=== PATIENT | female | born 1945 | race Caucasian/White ===

== ENCOUNTER → 2017-04-28 | Outpatient (CLI) | payer OTHER, MEDICAID ==
[~2017-04-28] MED LIST: REGADENOSON 0.4 MG/5 ML SYR IVP ONE
--- NOTE | 2017-04-28 14:57 | PDCARST ---
CAR Stress Test Results Type of Stress Test: Lexiscan stress test Indication: chest pain Description of Procedure: After informed consent was obtained, pt was established to ECG, blood pressure, HR and oximetry monitoring. STRESS EKG AND HEMODYNAMIC DATA. Resting heart rate: 74 BPM. Resting ECG: SR. Resting blood pressure: 110/74 mmHg. O2 saturation at rest: 96%. Peak heart rate: 79 BPM. Peak blood pressure: 118/70 mmHg. Arrhythmias: PVC couplet in recovery. Symptoms: The patient experienced no typical symptoms of angina during stress or recovery. Stress/Infusion ECG: No change in rhythm with no significant ST/T wave changes. Stress/infusion O2 saturation: 98% Impression: Uneventful Lexiscan infusion. Conclusion: Await nuclear images.
== END ==
LOC: FIMAGING 12:55
PROVIDERS: ATTEND Internal Medicine
DX: R06.02 Shortness of breath (principal); R07.9 Chest pain, unspecified; R60.0 Localized edema
CPT/HCPCS: 78452; 93017; A9500; J2785

== ENCOUNTER 2017-05-28 06:02 | Inpatient (IN) | payer OTHER, MEDICAID ==
--- NOTE | 2017-05-28 06:10 | CPEKG ---
Heart Rate: 74 RR Interval: 811 P-R Interval: 180 QRSD Interval: 100 QT Interval: 420 QTC Interval: 466 P [place]: 40 QRS [place]: -47 T Wave [place]: 85 EKG Severity - ABNORMAL ECG - EKG Impression: ATRIAL-PACED COMPLEXES EKG Impression: LAD, CONSIDER LAFB OR INFERIOR INFARCT EKG Impression: CONSIDER ANTERIOR INFARCT EKG Impression: NONSPECIFIC T ABNORMALITIES, LATERAL LEADS Electronically Signed By: Krunal Bates 31-May-2017 15:33:59
--- NOTE | 2017-05-28 06:21 | EDPHY ---
H & P Time Seen by Provider: 05/28/17 06:10 HPI/ROS: HPI CHIEF COMPLAINT: Generalized weakness, failure to thrive HISTORY OF PRESENT ILLNESS: This patient is 71-year-old female, she has a history of GERD, COPD on home oxygen 4 L, additionally lives at [facility], presents emergency room generalized weakness x3 days. EMS reports that she has been globally weak for 3 days with a failure to thrive picture not eating and drinking. Report no vomiting. The patient denies any chest pain. Patient is a poor historian and has no complaints upon arrival to the emergency room. Denies chest pain or abdominal pain. She does complain of bilateral lower extremity edema. Daughter has arriving to be more information she reports she has been weak for the past 3 days globally. And not been eating and drinking. She is concerned she may be dehydrated. She distally reports that the bilateral lower extremities worse than normal. And that she is complaining worsening shortness of breath. She was recently started on Lasix. Additionally patient has significant kyphosis and hyperflexed neck daughter reports this is normal for her she is supposed to wear a pad neck brace but does not do so. Daughter reports that she wears 3 L during the day of oxygen 5 L at night. Past Medical History: COPD on oxygen, GERD, anxiety, bipolar disorder, recent cardiac nuclear stress test with any of 42%. Past Surgical History: No recent surgery Social History: Lives at [facility] Family History: Noncontributory ROS REVIEW OF SYSTEMS: A comprehensive 10 point review of systems is otherwise negative aside from elements mentioned in the history of present illness. Exam Constitutional appears well nontoxic, elderly, triage nursing summary reviewed , vital signs reviewed, awake/alert. Eyes normal conjunctivae and sclera, EOMI, PERRLA. HENT neck is hyperreflexia significant kyphosis, normal inspection, atraumatic , moist mucus membranes, no epistaxis, neck supple/ no meningismus, no raccoon eyes. Respiratory decreased breath sounds bilaterally. Cardiovascular rate normal, regular rhythm, no murmur, no edema, distal pulses normal. Gastrointestinal soft, non-tender, no rebound, no guarding, normal bowel sounds, no distension, no pulsatile mass. Genitourinary no CVA tenderness. Musculoskeletal bilateral lower extremity 4+ pitting edema, no midline vertebral tenderness, full range of motion, no calf swelling, no tenderness of extremities, no meningismus, good pulses, neurovascularly intact. Skin pitting edema, pink, warm, & dry, no rash, skin atraumatic. I underneath the abdominal pannus there is significant yeast infection. Neurologic awake, alert and oriented x 3, AAOx3, moves all 4 extremities equally, motor intact, sensory intact, CN II-XII intact, normal cerebellar, normal vision, normal speech. Psychiatric normal mood/affect. Heme/Lymph/Immune no lymphadenopathy. Differential Diagnosis: Includes but is not limited to in a particular order dehydration, electrolyte disturbance, infection, sepsis given UTI, bacteremia, volume overload, congestive heart failure Medical Decision Making: Plan for this patient IV establishment, obtain EKG, x- ray, troponin, BNP, will hold off on IV fluids at this time until I can't confirm her volume status, check UA. Plan will be for admission for generalized weakness Re-evaluation: EKG interpretation by me on record in [facility] system. Impression time of EKG 6:08 a.m., this is sinus rhythm rate of [address] elevation no significant ST depression T-wave abnormality in aVL. Appears to be atrially paced complex. No old EKG to compare this to. ED x-ray chest one view this shows cardiomegaly, bilateral pleural effusions, pacemaker appears to be in place. I do not appreciate a focal pneumonia. 0700: Spoke with the hospitalist service agrees to admit this patient for generalized weakness, failure to thrive, most likely CHF. 0711: Patient's urinalysis pending at this time. Hospitalist service to follow up the UA. Patient clinically most likely has CHF. Additionally has a skin fold yeast infection. Additionally generalized weakness. Volume overloaded. Patient has been ordered 40 mg IV Lasix. Plan is for admission for generalized weakness, CHF. Spoke with Dr. Wheeler who agrees to admit. Source: Patient, EMS - Medical/Surgical History Hx Asthma: No Hx Chronic Respiratory Disease: Yes Hx Diabetes: No Hx Cardiac Disease: No Hx Renal Disease: No Hx Cirrhosis: No Hx Alcoholism: No Hx HIV/AIDS: No Hx Splenectomy or Spleen Trauma: No Other PMH: PMH: GERD,HTN,BIPOLAR,ANXIETY,COPD,BREAST CA. PSH: R MASTECTOMY - Social History Smoking Status: Current every day smoker Constitutional: Initial Vital Signs Temperature (C) 37.3 C 05/28/17 06:04 Heart Rate 77 05/28/17 06:04 Respiratory Rate 22 H 05/28/17 06:04 Blood Pressure 138/58 H 05/28/17 06:04 O2 Sat (%) 88 L 05/28/17 06:04 O2 Delivery Mode Room Air O2 (L/minute) 5 Allergies/Adverse Reactions: bacitracin Allergy (Verified 05/28/17 06:50) naproxen [From Aleve] Allergy (Verified 05/28/17 06:50) Penicillins Allergy (Verified 03/12/14 14:39) Home Medications: Medication Instructions Recorded Acetaminophen [Tylenol 325mg (*)] 650 mg PO TID 05/28/17 Calcium Carbonate [Tums 500MG (*)] 500 mg PO TIDMEAL 05/28/17 Chlorhexidine Gluconate 15 ml PO BID 05/28/17 [Chlorhexidine Gluconate] Cholecalciferol Vit D3 [Vitamin D3 50,000 unit PO Q30D 05/28/17 (*)] Debrox Ear drops (*) 1 drop EACHEAR DAILY PRN 05/28/17 Fluticasone/Salmeter 250/50Mcg 1 puffs IH BID 05/28/17 [Advair 250/50 (*)] Furosemide [Lasix 20 MG (*)] 20 mg PO DAILY 05/28/17 Gabapentin [Neurontin 100 MG (*)] 100 mg PO HS PRN 05/28/17 Ipratropium 0.03% Nasal [Atrovent 2 spray EACHNARE BID 05/28/17 0.03% Nasal (*)] Ipratropium/Albuterol [Duoneb (*)] 3 ml IH Q4H PRN 05/28/17 Hallett Carbonate [Hallett 300 mg PO BID 05/28/17 Carbonate Tab 300 mg (*)] Loperamide HCl [Imodium 2 mg (*)] 2 mg PO QID PRN 05/28/17 Loxapine Succinate [Loxapine 25 mg 25 mg PO HS 05/28/17 (*)] Magnesium Hydroxide [Milk of 30 ml PO DAILY PRN 05/28/17 Magnesia] Nystatin [Mycostatin Oint (RX)] 1 jose TP BID PRN 05/28/17 Omeprazole [Omeprazole] 20 mg PO DAILY 05/28/17 Oxybutynin Chloride [OXYBUTYNIN 5 mg PO DAILY 05/28/17 CHLORIDE ER] Potassium Chloride [Klor-Con] 20 meq PO DAILY 05/28/17 Primidone [Mysoline] 75 mg PO HS 05/28/17 Pyridoxine HCl [Vitamin B-6 100 mg 100 mg PO DAILY 05/28/17 (*)] Rivaroxaban [Xarelto] 20 mg PO DAILY@18 05/28/17 Triamcinolone 0.1% [Triamcinolone 15 gm TP DAILY PRN 05/28/17 0.1% Cream (*)] Venlafaxine Xr [Effexor Xr] 150 mg PO HS 05/28/17 amLODIPine BESYLATE [Amlodipine 5 mg PO DAILY 05/28/17 Besylate] guaiFENesin [Mucinex 600 MG (*)] 600 mg PO BID PRN 05/28/17 metroNIDAZOLE 0.75% [Metrocream 0 jose TOP BID PRN 05/28/17 0.75% (RX)] traMADol HCL [Tramadol HCl] 100 mg PO TID 05/28/17 Medical Decision Making - Data Points Laboratory Results: Laboratory Results 05/28/17 06:09 05/28/17 06:09 05/28/17 06:45 Ur Culture Indicated? NOT INDICATED (NI) Medications Given: Albuterol/Ipratropium (Duoneb) 3 ml IH QID [facility] Stop: 11/24/17 11:59 Last Admin: 05/28/17 20:46 Dose: 3 ml Cholecalciferol (D3-50) 50,000 unit PO Q30D [facility] Stop: 11/24/17 09:29 Last Admin: 05/28/17 11:33 Dose: Not Given Furosemide (Lasix Injection) 40 mg IVP BID@0900,1500 [facility] Stop: 11/24/17 14:59 Last Admin: 05/28/17 16:20 Dose: 40 mg Lisinopril (Zestril) 5 mg PO DAILY [facility] Stop: 11/24/17 10:14 Last Admin: 05/28/17 11:40 Dose: 5 mg Hallett Carbonate (Hallett Carbonate) 300 mg PO BID [facility] Stop: 11/24/17 09:29 Last Admin: 05/28/17 10:16 Dose: 300 mg Oxybutynin Chloride (Ditropan Xl) 5 mg PO DAILY [facility] Stop: 11/24/17 09:29 Last Admin: 05/28/17 10:15 Dose: 5 mg Pantoprazole Sodium (Protonix) 40 mg PO DAILY [facility] Stop: 11/24/17 09:29 Last Admin: 05/28/17 10:15 Dose: 40 mg Potassium Chloride (Klor Packets) 20 meq PO DAILY [facility] Stop: 11/24/17 09:29 Last Admin: 05/28/17 10:15 Dose: 20 meq Rivaroxaban (Xarelto) 20 mg PO DAILY@18 [facility] Stop: 11/24/17 17:59 Last Admin: 05/28/17 17:48 Dose: 20 mg Fluticasone/Salmeterol (Advair) 1 puffs IH BID [facility] Stop: 11/24/17 09:29 Last Admin: 05/28/17 20:50 Dose: 1 inh Tramadol HCl (Ultram) 100 mg PO TID [facility] Stop: 11/24/17 15:59 Last Admin: 05/28/17 16:20 Dose: 100 mg Discontinued Medications Enoxaparin Sodium (Lovenox) 40 mg SC DAILY [facility] Stop: 11/24/17 08:59 Last Admin: 05/28/17 10:10 Dose: Not Given Furosemide (Lasix Injection) 40 mg IVP EDNOW ONE Stop: 05/28/17 07:00 Last Admin: 05/28/17 07:35 Dose: 40 mg Departure - Departure Disposition: [facility] Acute Clinical Impression: Generalized weakness, Yeast infection CHF (congestive heart failure) Qualifiers: Heart failure type: systolic Heart failure chronicity: acute Qualified Code(s) : I50.21 - Acute systolic (congestive) heart failure Condition: Fair
[2017-05-28 06:34] LABS: PLATELET COUNT 238 10^3/uL (150-400)
[2017-05-28 06:40] LABS: CREATINE KINASE 62 IU/L (0-156); INR 1.6 (0.83-1.16); PROTIME(PATIENT) 19.2 SEC (12.0-15.0)
[2017-05-28] MEDS ORDERED: FUROSEMIDE 40 MG/4 ML VIAL IVP ONE (06:59)
[2017-05-28] MEDS ORDERED: ONDANSETRON 4 MG/2 ML VIAL IVP PRN (07:34)
[2017-05-28] MEDS ORDERED: ENOXAPARIN 40 MG/0.4 ML SYR SC SCH (09:00)
[2017-05-28] MEDS ORDERED: ZOLPIDEM TARTRATE 5 MG TAB PO PRN (09:10)
[2017-05-28] MEDS ORDERED: ALBUTEROL 3 ML DEYVIAL IH PRN (09:10)
[2017-05-28] MEDS ORDERED: TRIAMCINOLONE 0.1% 15 GM CRTUBE TP PRN (09:16)
[2017-05-28] MEDS ORDERED: NYSTATIN 15 GM OINTMENT TP PRN (09:16)
[2017-05-28] MEDS ORDERED: GABAPENTIN 100 MG CAP PO PRN (09:16)
[2017-05-28] MEDS ORDERED: NON-FORMULARY NEW DRUG (Omeprazole [Omeprazole] 20 MG) PO SCH (09:30)
--- NOTE | 2017-05-28 10:13 | SOAPPROG ---
OTTO Progress Note Assessment/Plan: Assessment: 1. Heart failure with reduced ejection fraction 2. Acute on chronic systolic heart failure 3. Significant peripheral edema This patient has made it very clear she does not want to take diuretic medications. We talked about this extensively and he is going to be very bad for her she does not. However she seems quite clear that that is the way she is going to go. I will add add for JELLY-inhibitor today see how she tolerates that and if heart failure is stable after several days of diuretics we will add a beta-deya as well. He can get her ejection fraction up it might be easier for her to do well without the diuretic which she is going to refuse as of now She has agreed to diuretics while she is in the hospital. Plan: 05/28/17 10:11 Objective: Vital Signs Temp Pulse Resp BP Pulse Ox 37.1 C 92 17 122/67 H 97 05/28/17 08:32 05/28/17 08:32 05/28/17 08:32 05/28/17 08:32 05/28/17 08:32 05/27/17 05/28/17 05/29/17 05:59 05:59 05:59 Intake Total 400 Balance 400 PT 19.2 SEC (12.0-15.0) H 05/28/17 06:09 INR 1.60 (0.83-1.16) H 05/28/17 06:09 ICD10 Worksheet Patient Problems: Problems Problem Status Onset CHF (congestive heart failure) Acute Generalized weakness Acute Yeast infection Acute
[2017-05-28] MEDS: OXYBUTYNIN 5 MG EXT REL TAB PO SCH (10:15)
[2017-05-28] MEDS: POTASSIUM CL 20 MEQ PKT PO SCH (10:15)
[2017-05-28] MEDS: PANTOPRAZOLE SODIUM 40 MG TAB PO SCH (10:15)
[2017-05-28] MEDS: LITHIUM CARBONATE 300 MG TAB PO SCH ×2 (10:16→21:37)
[2017-05-28] MEDS: CHOLECALCIFEROL VIT D3 50,000 UNIT CAP PO SCH ×2 (10:16→11:33)
--- NOTE | 2017-05-28 10:19 | GCON ---
[f rep st] CONSULTATION CARDIOLOGY CONSULTATION REASON FOR CONSULTATION: Shortness of breath. HISTORY OF PRESENT ILLNESS: The patient is here in the hospital with a chief complaint of shortness of breath. She has been having increasing peripheral edema. She has felt weak for 3 days. Her daughter says iron chavez cannot get up and walk around, and take more than 3 steps. She has significant lower extremity roel ma which has been getting worse. She has not taken her Lasix. She has no chest pain, jaw pain, arm pain. No history of pleuritic chest pain. No fever, chills, cough. No sputum production. No hemoptysis. No history of tuberculosis. No hist ory of atrial arrhythmias, atrial fibrillation, pulmonary embolism. No history of DVT. She has a flexion deformity of her neck. She is worried about how she is doing. She was seen in the past and told to take Lasix, and she never chose to do that. Cardiac risk factors are negative for hypertension, hyperlipidemia, diabetes mellitus. Denied any hi story of premature coronary artery disease, hyperuricemia, obesity or known coronary artery disease. The patient had a nuclear stress test with no ischemia in April and with history of an ejection fr action of 42%. Echocardiographic studies show trivial MR, ejection fraction approximately 45%. REVIEW OF SYSTEMS: A 10-point review of systems was negative, except as noted above. She has been o n oxygen for what is call COPD, although I am not sure about that diagnosis. She has no smoking hist ory that is significant. She does have a history of hiatal hernia and esophageal reflux. She has be en said to be bipolar. She has had a right mastectomy, breast cancer. PAST SURGICAL HISTORY: None for many years. SOCIAL HISTORY: She is here with her daughter. She lives at [facility]. She does have a smoking h istory. She does drink significant amount of alcohol. FAMILY HISTORY: No family history of premature coronary artery disease. No history of unexplained s udden at a young age. MEDICATIONS: In the record. ALLERGIES: Bacitracin, naproxen, penicillin. PHYSICAL EXAMINATION: VITAL SIGNS: Blood pressure 114/70, heart rate 65, respiratory rate 12. HEEN T: Pupils equal and reactive. NECK: Has flexion deformity. PULMONARY: Rhonchi bilaterally. Decr eased breath sounds. Slightly increased AP diameter. CARDIOVASCULAR: S1, S2. Systolic murmur in l eft sternal border. No diastolic murmur. No S3 or S4. No rubs. ABDOMEN: Soft, nontender, without masses. BREASTS: Status post right mastectomy. CVA: No tenderness. EXTREMITIES: 3+ edema. JENNIFER ROLOGIC: She is intact. LABORATORY DATA: EKG shows anterior infarction, diffuse nonspecific ST-T changes. Chest x-ray showed chronic changes. The radiologist thought there was a question of pneumonia. Nuclear stress test in April showed no evidence of ischemia. Ejection fraction 43%. Echocardiographic study showed ejection fraction 43%. No significant valvular heart disease. Assessment and labs are attached in the record. ASSESSMENT: 1. Congestive heart failure. 2. Weakness. 3. Peripheral edema. PLAN: She is feeling very weak and very tired. She had a recent urinary tract infection. She does not want to take Lasix long-term because she has to urinate too much and it is hard for her to get around. We will start her slowly on an JELLY inhibit or and a beta deya, and we will see how she tolerates these drugs while we give her diuretic while she is in the hospital. She said she is willing to take it in the hospital, she does not want to ta ke it outside of the hospital. We spent a long time going over end-of-life care, and she does not want to decide about being a no co de at this point in time. She will consider that, and I have discussed this with both she and her betty penn. She has no other issues right now that she is concerned about, except she is just worried about where she might have to go to live if she is weak. She cannot go to [facility] presumably if she is unab le to walk and take care of herself. We talked about the fact that she may need to be in a rehab center for a little bit or a skilled nurs ing home or something, and she is aware of that; but she is not happy at all about the thought. In t he meantime, we will follow along and see how she does. There is nothing to suggest acute myocardial infarction. There is nothing to suggest other significant deteriorations right at this point. All her questions have been answered. I have talked to the hospitalist about this case. /[id number]/MODL
[2017-05-28] MEDS: LISINOPRIL 5 MG TAB PO SCH (11:40)
[2017-05-28] MEDS: IPRATROPIUM/ALBUTEROL 3 ML DEYVIAL IH SCH ×3 (12:06→20:46)
[2017-05-28] MEDS: FLUTICASONE/SALMETER 250/50MCG DISKUS IH SCH ×2 (12:11→20:50)
[2017-05-28] MEDS: traMADol 50 MG TAB PO SCH ×2 (16:20→21:37)
[2017-05-28] MEDS: FUROSEMIDE 40 MG/4 ML VIAL IVP SCH (16:20)
--- NOTE | 2017-05-28 17:35 | GHP ---
[f rep st] HISTORY AND PHYSICAL DATE OF ADMISSION: 05/28/2017 CHIEF COMPLAINT: Shortness of breath and weakness. HISTORY OF PRESENT ILLNESS: This is a 71-year-old female who lives at [facility], who is reported t o have been weak with a loss of appetite and shortness of breath for the last 3-4 days. She has a kn own history of systolic CHF and COPD. Her daughter says she cannot get up and move around except for taking just a few steps. She has also noted increasing lower extremity edema. Though the patient w as prescribed Lasix, she was not taking it. The patient herself denies that she is having chest pain , jaw pain, or arm pain. She also denies any history of a pleuritic pain or pain when moving. She d enies fever, chills, sweats, a cough, and she has had no sputum production. At her baseline, she den ies having a cough regarding her COPD. She denies a history of cough and hemoptysis, and denies a hi story of a prior DVT. Of significant note is that in the last 6-12 months, she has developed a flexi on deformity of her neck of unexplained nature. She reports it has been evaluated by an orthopedic s urgeon and reported that there is nothing he can do about it. Though the patient has been prescribed Lasix in the past, she has not taken it until perhaps the last 2 days, when she may have taken 1 or 2 doses. It is by her own choice that she chooses not to take it, because it causes urination, and s he has difficulty getting to the bathroom and will urinate in her bed clothes before she can get to t he toilet. Her cardiac evaluation previously showed that she had a nuclear stress test in April of 2017 which showed no evidence of ischemia and an ejection fraction of 42%. Prior echocardiogram showed an ejec tion fraction of 45%. Her cardiac risk factors show that she is a negative diabetic. There is no hi story of premature coronary artery disease in her family. PAST MEDICAL HISTORY: She denies asthma, allergies, diabetes, or renal problems. She has recently b een treated for a UTI and completed a course of antibiotics. During the UTI, she it was symptomatic with dysuria, and she reports the dysuria has resolved. In the course of her treatment in the emerge ncy department in this hospitalization, she was given Lasix and has had significant urination. That urination has not been symptomatic, and there has been no dysuria. PAST SURGICAL HISTORY: No surgeries for many years. SOCIAL HISTORY: Patient lives a [place]. Her daughter is here with her. Tobacco: She had smok ed up until just very recently and has many year history of the same. She also is a person who has u sed alcohol frequently and perhaps in large amounts, and continues to have a small amount of alcohol at this time. FAMILY HISTORY: No history of premature and early coronary artery disease, and no history of unexpla ined . ALLERGIES: Bacitracin, naproxen, and penicillin. MEDICATIONS: Noted in the EMR. PHYSICAL EXAMINATION: GENERAL: This is an elderly and tired appearing female with a kyphotic deform ity of her neck. She is in mild discomfort and has urinated in the bed, because she was unable to ge t out of bed. VITAL SIGNS: She has normal blood pressure. Heart rate is at 65 at this time, in sin us rhythm. Respiratory rate of 12. HEENT: Her pupils are equal and reactive. Scalp is atraumatic. NECK: A flexion deformity to the left and downward. PULMONARY STATUS: She has rhonchi and rales located bibasilarly with decreased breath sounds. CARDIOVASCULAR: Singular S1 and S2. There is a s ystolic murmur at the left sternal border without a diastolic murmur. ABDOMEN: Soft, nontender, gianni ign. BREASTS: She is status post a right mastectomy. EXTREMITIES: 3+ edema. NEUROLOGIC: Symmetr ic and normal. She is alert and oriented and conversant. DIAGNOSTIC STUDIES: ECG shows evidence of a prior anterior infarction, diffuse nonspecific ST-T wave changes. Chest x-ray shows early CHF, but no evidence of pneumonitis. Nuclear stress test performed in April of this year showed no evidence of ischemia with an ejectio n fraction of 43%. A recent echocardiogram showed an ejection fraction of 45%. ASSESSMENT: 1. Acute congestive heart failure, systolic decompensation secondary to inadequate diuresis. The gillian quinonez has refused to take Lasix. Given her reduced systolic ejection fraction, she will in fact need s some assistance to prevent development of peripheral edema and ultimately congestive heart failure if her congestive heart failure worsens or oxygenation would worsen, which would compound the problem . 2. Acute hypoxic respiratory failure secondary to decompensated systolic congestive heart failure an d decompensated chronic obstructive pulmonary disease. She has a baseline chronic hypoxia requiring 3-4 L oxygen a day. The chronic obstructive pulmonary disease is secondary to tobacco use which has been current until recently. 3. Chronic obstructive pulmonary disease with an acute exacerbation. 4. Paroxysmal atrial fibrillation. The patient is status post a pacemaker placement and intermitten tly shows a rhythm of atrial pace. She is on Xarelto anticoagulation, and this will be continued. H er atrial fibrillation is currently in good rate control. 5. Urinary tract infection. She has recently been treated for a urinary tract infection, and curren tly, her urination is asymptomatic. A urinalysis will be obtained, although I doubt will need antibi otics at this time. 6. Recent kyphotic deformity of the neck. Further investigation of this will be necessary. PLAN: The patient will be given diuretics as these are absolutely necessary at this time, and we whitney l assist her with a bedside commode if necessary. The patient does continue to decline Lasix as an o utpatient medication. How we can manage her chronic CHF is unclear. Perhaps the use of an JELLY inhib itor and a beta deya can be helpful, although diuresis still seems that will be necessary. BILLING: The patient will be admitted to inpatient status. CODE STATUS: Full code. I have discussed this matter with the patient as to it will be quite difficult to intubate the ladkourtney garcia the kyphotic deformity of her neck. The only possible way that could be done would be over bron choscoped nasally. A tracheostomy would also be quite difficult. Despite these thoughts, the bianca cheryl continues to request full code status. TIME: This admission required 55 minutes. /[id number]/MODL
[2017-05-28] MEDS: RIVAROXABAN 20 MG TAB PO SCH (17:48)
--- NOTE | 2017-05-28 18:03 | PDMN ---
Medical Necessity Medical necessity: C/M review: Patient meets INPT criteria under MCGM-190 heart failure, M-100 COPD: Acute and persistent - congestive heart failure exacerbation, systolic decompensation secondary to inadequate diuresis, hypoxic respiratory failure secondary to decompensated systolic CHF and decompensated COPD, COPD exacerbation, requiring planned echocardiogram, Wound care consult, ongoing IV Lasix BID, cardiac monitoring, pulse oximetry, supplemental O2, acute inpt PT/OT, comorbid patient refused to take Lasix, chronic hypoxia requiring 3-4L/min O2 a day, tobacco use, paroxysmal atrial fibrillation S/P pacemaker placement, patient recently treated for UTI and patient completed a course of antibiotics, recent kyphotic deformity of the neck, history of alcohol use frequently in large amounts, patient continues to have a small amount of alcohol at this time. MD anticipates > 2 MN LOS for ongoing med nec for eval and TX of above. Patient is Medicare Advantage which follows guidelines CMS puts forth.
[2017-05-28] MEDS: LOXAPINE SUCCINATE 25 MG CAP PO SCH (21:37)
[2017-05-28] MEDS: VENLAFAXINE XR 150 MG CAP PO SCH (21:37)
[2017-05-28] MEDS: PRIMIDONE 50 MG TAB PO SCH (21:37)
[2017-05-29 04:11] LABS: PLATELET COUNT 228 10^3/uL (150-400)
[2017-05-29] MEDS: ACETAMINOPHEN 325 MG TAB PO PRN (04:43)
[2017-05-29] MEDS: IPRATROPIUM/ALBUTEROL 3 ML DEYVIAL IH SCH ×4 (05:09→21:57)
[2017-05-29] MEDS: FUROSEMIDE 40 MG/4 ML VIAL IVP SCH ×2 (08:18→15:02)
[2017-05-29] MEDS: POTASSIUM CL 20 MEQ PKT PO SCH (08:18)
[2017-05-29] MEDS: PYRIDOXINE HCL 100 MG TAB PO SCH (08:18)
[2017-05-29] MEDS: LISINOPRIL 5 MG TAB PO SCH ×2 (08:19→15:21)
[2017-05-29] MEDS: LITHIUM CARBONATE 300 MG TAB PO SCH ×2 (08:19→21:51)
[2017-05-29] MEDS: MULTIVITAMINS 1 EACH TAB PO SCH (08:19)
[2017-05-29] MEDS: traMADol 50 MG TAB PO SCH ×3 (08:19→21:51)
[2017-05-29] MEDS: PANTOPRAZOLE SODIUM 40 MG TAB PO SCH (08:19)
[2017-05-29] MEDS: OXYBUTYNIN 5 MG EXT REL TAB PO SCH (08:19)
[2017-05-29] MEDS: amLODIPine BESYLATE 5 MG TAB PO SCH ×2 (08:19→15:21)
--- NOTE | 2017-05-29 09:05 | SOAPPROG ---
OTTO Progress Note Assessment/Plan: Assessment: 1. Heart failure with reduced ejection fraction 2. Acute on chronic systolic heart failure 3. Significant peripheral edema Plan: 05/28/17 10:11 05/29/17 09:06 1. Heart failure with reduced ejection fraction 2. Acute on chronic systolic heart failure 3. Peripheral edema 4. Pacemaker 5. Fatigue She is feeling much better today. She has had a good diuresis. She was urinating on herself and so are CHRIS count is by no means accurate. She looks much better today. She has had a negative nuclear stress test for ischemia in April. She had an echocardiographic study at in the office that showed only trivial valvular disease. Both studies documented an ejection fraction in the range of 42-45% We had wanted her to start taking Lasix that time he gave her prescription but she chose not to take it and eventually her peripheral edema has increased and gotten to the point where she was significantly short of breath even though chest x-ray did not show heart failure. I think she is improving rapidly. I would recommend that we get her moving and discharged soon as possible before she stays in the hospital long enough to get sick. When she came in she was unable to ambulate very much may need rehab before going back to independent living. Physical therapy in the discharge team can look at this carefully I have answered all the patient's questions. She tolerated an JULIUS-inhibitor yesterday if she is in good shape tomorrow I would add a beta-deya to her current regime of diuretics and Julius inhibitors. She will be followed in the Heart failure transitional care service after discharge. Subjective: She feels much better today She is not short of breath She is not having any stomach discomfort She has no chest pain She feels much more lively She does not like taking diuretics. She has no lightheadedness or dizziness She is not having palpitations Objective: Vital Signs Temp Pulse Resp BP Pulse Ox 37.0 C 76 17 110/51 L 88 L 05/29/17 04:00 05/29/17 08:20 05/29/17 08:00 05/29/17 08:20 05/29/17 08:00 Laboratory Results 05/29/17 03:35 05/29/17 03:35 05/28/17 05/29/17 05/30/17 05:59 05:59 05:59 Intake Total 1840 Output Total 1400 300 Balance 440 -300 PT 19.2 SEC (12.0-15.0) H 05/28/17 06:09 INR 1.60 (0.83-1.16) H 05/28/17 06:09 Laboratory Tests 05/28/17 05/28/17 05/28/17 06:09 06:09 06:09 Hct 37.0 L Plt Count 238 BUN 12 Creatinine 1.1 H Troponin I < 0.012 NT-Pro-B Natriuret Pep 669 H TSH 0.669 05/29/17 05/29/17 03:35 03:35 Hct 33.7 L Plt Count 228 BUN 11 Creatinine 1.0 Troponin I NT-Pro-B Natriuret Pep 445 H TSH Physical Exam - Physical Exam General Appearance: alert, no apparent distress Neck: other Respiratory: chest non-tender, rhonchi, No pain on movement Cardiac/Chest: JVD, systolic murmur Abdomen: non-tender, soft, No organomegaly Skin: warm/dry, pallor Extremities: pedal edema, No calf tenderness Neuro/Psych: alert ICD10 Worksheet Patient Problems: Problems Problem Status Onset CHF (congestive heart failure) Acute Generalized weakness Acute Yeast infection Acute
[2017-05-29] MEDS: FLUTICASONE/SALMETER 250/50MCG DISKUS IH SCH (10:29)
--- NOTE | 2017-05-29 13:31 | WOCRNPDOC ---
WOCRN Advanced Assessment Note - Skin Integrity Problem, Advanced Assess Bilateral Groin Dressing Type: Open to Air Roz Wound Tissue: Erythema, Raw Skin Integrity Problem Comment: Patient with intertriginous dermatitis to the groin folds. Area is red and moist, bilaterally. Patient experiences some pain when RN Carissa cleans with moistened cloths. Plan is to gently clean and dry area and to separate the skin folds. A pack of InterDry sheets tubed to 2W for the care of this patient. Wound care will not continue to round. Please reconsult PRN if moisture or breakdown to the area worsen.
--- NOTE | 2017-05-29 15:24 | HOSPPROG ---
Hospitalist Progress Note Assessment/Plan: 71-year-old admitted with peripheral edema. Patient noted to have systolic congestive heart failure in decompensation with some increased oxygen needs. She has a long history the use of tobacco. Has a chronic history of PAF on Xarelto and hypertension. -acute decompensated systolic CHF. She is diuresing nicely with Lasix and will continue the same. Patient initially stated she would not take Lasix at home but she has relented now agrees that she will take Lasix if she can have diapers. -acute hypoxic respiratory failure: This represents an exacerbation of her COPD in combination with her decompensated systolic CHF. Her oxygen needs are improving S the CHF improves. She has no fever white count is normal. -COPD: She has long history of tobacco and in fact continues to smoker only recently stopped. She will need home O2 going home. -hypertension: She has a history of hypertension on med she had is normotensive without hypertensive medications likely secondary to intensive diuresis. I placed her blood pressure medicines on hold in the should be restarted as is appropriate. -proximal atrial fibrillation on long-term anticoagulation with Xarelto and rate control along with a pacemaker placement. This is currently stable and she is in good rate control. -kyphotic neck deformity of uncertain etiology. This been evaluated by orthopedic she reports and they say there is nothing that can be done. Of note her the neck deformity would make intubation extremely difficulty from the dangers. -code status: Full Plan: -patient's agreed to be placed in SNF temporarily. She has also agreed to take Lasix if she can have diapers. She has significant difficulty getting to the bathroom with the intensity of the Lasix response. I have discussed the above findings with her daughter Bailey and with the patient 's and with the house staff on rounds all questions were answered time was 50 min Subjective: Reports she is feeling improved Objective: Vital Signs Temp Pulse Resp BP Pulse Ox 36.9 C 76 14 104/64 93 05/29/17 11:30 05/29/17 11:30 05/29/17 11:30 05/29/17 11:30 05/29/17 11:30 Laboratory Results 05/29/17 03:35 05/29/17 03:35 05/28/17 05/29/17 05/30/17 05:59 05:59 05:59 Intake Total 1840 Output Total 1400 750 Balance 440 -750 PT 19.2 SEC (12.0-15.0) H 05/28/17 06:09 INR 1.60 (0.83-1.16) H 05/28/17 06:09 - Time Spent With Patient Time Spent with Patient: greater than 35 minutes Time Spent with Patient: Greater than 35 minutes spent on this patients care, greater than 50% of time spent counseling, educating, and coordinating care regarding the above mentioned plan. - Pending Discharge Pending Discharge Within 24 Hours: No Pending Discharge Within 48 Hours: No - Physical Exam Constitutional: no apparent distress, chronically ill appearing Eyes: PERRL, anicteric sclera Ears, Nose, Mouth, Throat: moist mucous membranes, hearing normal, other ( Kyphotic neck deformity.) Cardiovascular: irregularly irregular Respiratory: no respiratory distress, no rales or rhonchi, clear to auscultation Gastrointestinal: normoactive bowel sounds, soft, non-tender abdomen, no palpable masses Genitourinary: no bladder fullness Skin: other (Kanika rash noted in the inguinal regions.) Musculoskeletal: generalized weakness Neurologic: AAOx3, CN II-XII Intact Psychiatric: interacting appropriately ICD10 Worksheet Patient Problems: Problems Problem Status Onset CHF (congestive heart failure) Acute Generalized weakness Acute Yeast infection Acute
--- NOTE | 2017-05-29 16:09 | ASMTCMCOM ---
CM Note CM Note Notes: 05/29/2017 Case Management Note Discussed pt during multidisciplinary rounds this morning. PT stated that pt is at baseline mobility valencia and is recommending Home Care. Met w/pt and daughter Bailey [phone] this afternoon. Pt lives at [facility]. Pt has previously used [facility] and [facility]. Faxed referrals to both. Discussed how to enhance supports at [facility]. Pt has Medicaid HCBS, the upper caser is [facility] per daughter. Encouraged pt and daughter to request assessment by [facility] for increase community supports. Offered private pay unskilled provider list that Bailey declined as she wanted to pursue reassessment for increased HCBS services. Case Management d/c poc: return to [facility] with HC RN PT SERVICE TECH Case Management to follow. Date Signed: 05/29/2017 04:08 PM Electronically Signed By:Jaquelin Guzmán RN
[2017-05-29] MEDS: RIVAROXABAN 20 MG TAB PO SCH (16:58)
[2017-05-29] MEDS: VENLAFAXINE XR 150 MG CAP PO SCH (21:51)
[2017-05-29] MEDS: LOXAPINE SUCCINATE 25 MG CAP PO SCH (21:51)
[2017-05-29] MEDS: PRIMIDONE 50 MG TAB PO SCH (21:51)
[2017-05-30] MEDS: FLUTICASONE/SALMETER 250/50MCG DISKUS IH SCH ×3 (00:01→20:40)
[2017-05-30 04:20] LABS: PLATELET COUNT 257 10^3/uL (150-400)
[2017-05-30] MEDS: IPRATROPIUM/ALBUTEROL 3 ML DEYVIAL IH SCH ×4 (05:00→20:40)
--- NOTE | 2017-05-30 09:42 | PDCARPN ---
Cardiology Progress Note Chief Complaint: SOB with leg swelling Assessment/Plan: Assessment: 1. Acute on Chronic CHF with reduced EF 42 to 45%. This morning she is up in the chair and feeling stronger. She continues to diurese on IV Lasix. Recommend to switch to oral Lasix in preparation for discharge. She has had a recent cardiac work-up, having a nuclear stress test in April 2017 that was negative for ischemia, and an ECHO that showed no significant valve disease with EF 42 to 46%. Ideally, she should be on low dose Beta Madyson. At this time her BP is low at 105/69, likely related to her diuresis. This will need to be monitored and managed closely and addressed as an outpatient. 2. Shortness of Breath has improved with diuresis. She was not taking her Lasix at home as she was incontinent. The plan for discharge is for placement in SNF for close observation, further diuresis, and physical therapy. She would likely do best wearing adult absorptive pull ups, as she would be less likely to avoid taking her home Lasix. 3. Peripheral edema has improved. She has minimal lower leg swelling. She has venous stasis with leg discoloration. She is likely carrying fluid in her abdomen. Low dose Spironolactone 12.5 mg QD, which may be helpful to release abdominal fluid. Spironolactone is potassium sparing and would not likely need K+ supplementation. 4. Pacemaker in situ. 5. Paroxysmal Atrial Fibrillation--managed on Xarelto for anticoagulation. Plan: Recommend switch to oral Lasix, and add low dose Spironolactone Consider adding Beta Madyson for decline in EF once her BP can tolerate. Continue with PT to improve her strength, ability to transfer to wheelchair, and ambulate safely. Discharge as planned with SNF. Consider Palliative care if she does not qualify for SNF and able to return to independent Living. 05/30/17 09:05 05/30/17 09:58 Subjective: I can breath better now. I feel better. Reviewed/Discussed With: hospitalist, multidisciplinary team Objective: Vital Signs (8 Hrs) Temp Pulse Resp BP Pulse Ox 05/30/17 07:28 37.2 C 70 17 105/67 93 05/30/17 04:00 36.5 C 76 18 114/65 92 Intake/Output (24 Hrs) 05/29/17 05/30/17 05/31/17 05:59 05:59 05:59 Intake Total 1840 1400 Output Total 1400 2450 250 Balance 440 -1050 -250 Intake: Oral (ml) 1840 1400 Output: Urine (ml) 1400 2450 250 Bedside Commode 1400 2450 250 Other: Weight 67.4 kg 66.6 kg Number of Voids 1 Bedside Commode 1 1 1 Incontinence 1 1 Number of Stools Bedside Commode 1 1 Result Diagrams: 05/30/17 03:51 05/30/17 03:51 - Physical Exam Constitutional: no apparent distress Cardiovascular: no rubs, no gallops, systolic murmur, irregularly irregular Peripheral Pulses: 1+: dorsalis-pedis (R), dorsalis-pedis (L) Respiratory: no crackles, no wheezes, other (decreased breath sounds) Skin: no rashes, warm, no edema, other (abd full) Neurologic: AAOx3 Psychiatric: cooperative, interactive ICD10 Worksheet Patient Problems: Problems Problem Status Onset CHF (congestive heart failure) Acute Generalized weakness Acute Yeast infection Acute
[2017-05-30] MEDS: POTASSIUM CL 20 MEQ PKT PO SCH (09:49)
[2017-05-30] MEDS: MULTIVITAMINS 1 EACH TAB PO SCH (09:50)
[2017-05-30] MEDS: traMADol 50 MG TAB PO SCH ×3 (09:50→20:25)
[2017-05-30] MEDS: LITHIUM CARBONATE 300 MG TAB PO SCH ×2 (09:50→20:24)
[2017-05-30] MEDS: PYRIDOXINE HCL 100 MG TAB PO SCH (09:50)
[2017-05-30] MEDS: OXYBUTYNIN 5 MG EXT REL TAB PO SCH (09:50)
[2017-05-30] MEDS: FUROSEMIDE 40 MG/4 ML VIAL IVP SCH ×2 (09:50→15:02)
[2017-05-30] MEDS: PANTOPRAZOLE SODIUM 40 MG TAB PO SCH (09:50)
--- NOTE | 2017-05-30 15:16 | ASMTCMCOM ---
CM Note CM Note Notes: 05/30/2017 Case Management Note Discussed pt during multi disciplinary rounds this morning. Phone call from Derek ([phone]) at [facility]. After discussing pt condition with daughter Bailey, [facility] is unable to take pt back to Assisted Living with her current levels of care and is requiring a SNF rehab stay. Case Management discussed with pt and Bailey [phone], both are in agreement. Faxed referral to [facility] via [employer] at family request. Case Management d/c poc: [facility] faciilty pending acceptance. Case Management to follow. Date Signed: 05/30/2017 03:15 PM Electronically Signed By:Jaquelin Guzmán RN
[2017-05-30] MEDS: SPIRONOLACTONE 25 MG TAB PO SCH (17:07)
[2017-05-30] MEDS: RIVAROXABAN 15 MG TAB PO SCH (17:07)
--- NOTE | 2017-05-30 17:46 | HOSPPROG ---
Hospitalist Progress Note Assessment/Plan: DIAGNOSES: -acute systolic congestive heart failure with known chronic heart disease -acute hypoxemic respiratory failure -COPD with possible mild exacerbation -low-grade temperature elevation early this morning will need to be followed, asymptomatic -chronic rate controlled atrial fibrillation on anticoagulant -mild chronic kidney disease -normocytic anemia, mild, uncertain etiology or duration with no previous laboratory data available for comparison I reviewed the patient's care in detail today with Radha Baker of cardiology At this point she continues to successfully diurese and is feeling notably better. She remains quite weak and with poor ambulatory abilities and safety. She is tolerating the diuresis well otherwise with no side effects in her renal function remained stable I also visited the patient today on multidisciplinary rounds PLANS: Continue diuresis Continue fall risk precautions Continue physical occupational therapy Recheck her electrolytes and renal function in the morning Follow fevers closely if they recur consider evaluating for any potential infectious or other cause SUBJECTIVE: She notes that she feels less dyspneic and stronger than when she arrived; that having been said she remains quite weak overall No side effects of medicines so far OBJECTIVE Vitals reviewed: Low-grade temperature 37.7 degrees this morning otherwise Stable so far Welt Maker, my review: Rate controlled AFib Exam: alert oriented skin warm dry color ok resps not labored lungs clear BSs few rales heart irregular abd soft nondistended nontender, bowel sounds present limbs warm, mild bipedal edema iv site ok Laboratory data: Mild anemia stable, normocytic otherwise CBC unremarkable On chemistry her renal function and electrolytes are stable Objective: Vital Signs Temp Pulse Resp BP Pulse Ox 37.3 C 70 14 130/60 H 94 05/30/17 16:00 05/30/17 16:00 05/30/17 16:00 05/30/17 16:00 05/30/17 16:00 Laboratory Results 05/30/17 03:51 05/30/17 03:51 05/29/17 05/30/17 05/31/17 06:59 06:59 06:59 Intake Total 1840 1400 900 Output Total 1700 2150 1900 Balance 140 -750 -1000 PT 19.2 SEC (12.0-15.0) H 05/28/17 06:09 INR 1.60 (0.83-1.16) H 05/28/17 06:09 ICD10 Worksheet Patient Problems: Problems Problem Status Onset CHF (congestive heart failure) Acute Generalized weakness Acute Yeast infection Acute
[2017-05-30] MEDS: PRIMIDONE 50 MG TAB PO SCH (20:22)
[2017-05-30] MEDS: LOXAPINE SUCCINATE 25 MG CAP PO SCH (20:24)
[2017-05-30] MEDS: VENLAFAXINE XR 150 MG CAP PO SCH (20:25)
[2017-05-31] MEDS: ACETAMINOPHEN 325 MG TAB PO PRN (03:48)
[2017-05-31 04:32] LABS: PLATELET COUNT 248 10^3/uL (150-400)
[2017-05-31] MEDS: IPRATROPIUM/ALBUTEROL 3 ML DEYVIAL IH SCH ×4 (05:20→21:12)
[2017-05-31] MEDS: FUROSEMIDE 20 MG TAB PO SCH ×2 (08:20→15:47)
[2017-05-31] MEDS: OXYBUTYNIN 5 MG EXT REL TAB PO SCH (08:20)
[2017-05-31] MEDS: traMADol 50 MG TAB PO SCH ×2 (08:21→15:46)
[2017-05-31] MEDS: LITHIUM CARBONATE 300 MG TAB PO SCH ×2 (08:21→20:44)
[2017-05-31] MEDS: PANTOPRAZOLE SODIUM 40 MG TAB PO SCH (08:21)
[2017-05-31] MEDS: PYRIDOXINE HCL 100 MG TAB PO SCH (08:21)
[2017-05-31] MEDS: SPIRONOLACTONE 25 MG TAB PO SCH (08:22)
[2017-05-31] MEDS: MULTIVITAMINS 1 EACH TAB PO SCH (08:22)
--- NOTE | 2017-05-31 09:40 | PDCARPN ---
Cardiology Progress Note Assessment/Plan: Assessment: 1. Acute on Chronic CHF with reduced EF 42 to 45%. This morning she is up in the chair and feeling stronger. She continues to diurese on IV Lasix. Recommend to switch to oral Lasix in preparation for discharge. She has had a recent cardiac work-up, having a nuclear stress test in April 2017 that was negative for ischemia, and an ECHO that showed no significant valve disease with EF 42 to 46%. Ideally, she should be on low dose Beta Madyson. At this time her BP is low at 105/69, likely related to her diuresis. This will need to be monitored and managed closely and addressed as an outpatient. 2. Shortness of Breath has improved with diuresis. She was not taking her Lasix at home as she was incontinent. The plan for discharge is for placement in SNF for close observation, further diuresis, and physical therapy. She would likely do best wearing adult absorptive pull ups, as she would be less likely to avoid taking her home Lasix. 3. Peripheral edema has improved. She has minimal lower leg swelling. She has venous stasis with leg discoloration. She is likely carrying fluid in her abdomen. Low dose Spironolactone 12.5 mg QD, which may be helpful to release abdominal fluid. Spironolactone is potassium sparing and would not likely need K+ supplementation. 4. Pacemaker in situ. 5. Paroxysmal Atrial Fibrillation--managed on Xarelto for anticoagulation. Plan: Recommend switch to oral Lasix, and add low dose Spironolactone Consider adding Beta Madyson for decline in EF once her BP can tolerate. Continue with PT to improve her strength, ability to transfer to wheelchair, and ambulate safely. Discharge as planned with SNF. Consider Palliative care if she does not qualify for SNF and able to return to independent Living. 05/30/17 09:05 05/30/17 09:58 05/31/17 09:39 She feels that she is more "awake" today. 05/31/17 14:04 While laying in bed this AM her lungs sounded moist. She has had Lasix and Aldactone, and is sitting up in chair. Her lungs sound better now. She feels much better today, and is more talkative. She told me she walked in the room and she did better. She feels her strength is improving. Her Cr is 1.2 today. Will keep her Lasix at 20 mg BID and Aldactone 12.5 mg QD, with no increase due to her Creatinine level. Her SBP continues to dip to low 100's. Would not initiate BB therapy for the EF 42 to 25% until her BP stabilizes. She is improving both diuresing, and strength. 05/31/17 14:17 Reviewed/Discussed With: multidisciplinary team Objective: Vital Signs (8 Hrs) Temp Pulse Resp BP Pulse Ox 05/31/17 08:00 36.9 C 84 12 134/75 H 92 05/31/17 05:23 14 94 05/31/17 04:00 36.9 C 77 19 135/85 H 92 Intake/Output (24 Hrs) 05/30/17 05/31/17 06/01/17 05:59 05:59 05:59 Intake Total 1400 1250 480 Output Total 2450 2251 Balance -1050 -1001 480 Intake: Oral (ml) 1400 1250 480 Output: Urine (ml) 2450 2251 Bedside Commode 2450 2250 Incontinence 1 Other: Weight 66.6 kg 65.7 kg Number of Voids Bedside Commode 1 1 Incontinence 1 Number of Stools Bedside Commode 1 Result Diagrams: 05/31/17 04:06 05/31/17 04:06 - Physical Exam Constitutional: no apparent distress Cardiovascular: no rubs, no gallops, systolic murmur, irregularly irregular Peripheral Pulses: 1+: dorsalis-pedis (R), dorsalis-pedis (L) Respiratory: reduced air movement, inspiratory crackles Gastrointestinal: ascites Skin: no rashes, warm Musculoskeletal: other (lower leg David general tenderness) Neurologic: AAOx3 Psychiatric: cooperative, interactive ICD10 Worksheet Patient Problems: Problems Problem Status Onset CHF (congestive heart failure) Acute Generalized weakness Acute Yeast infection Acute
[2017-05-31] MEDS: FLUTICASONE/SALMETER 250/50MCG DISKUS IH SCH ×2 (11:06→21:13)
--- NOTE | 2017-05-31 16:31 | ASMTCMCOM ---
CM Note CM Note Notes: 05/31/2017 Case Management Note Call from [facility], only able to offer pt semi private room. Discussed with daughter Bailey who requested referrals to [facility] and [facility]. Family will choose based on private room. Any chosen facility will need auth from [employer] which may delay d/c tomorrow. Case Management d/c poc: to SNF pending auth and private room. Case Management to follow. Date Signed: 05/31/2017 04:30 PM Electronically Signed By:Jaquelin Guzmán RN
[2017-05-31] MEDS: RIVAROXABAN 15 MG TAB PO SCH (17:33)
--- NOTE | 2017-05-31 20:08 | HOSPPROG ---
Hospitalist Progress Note Assessment/Plan: DIAGNOSES: -acute systolic congestive heart failure with known chronic heart disease ( patient had not been using Lasix at home due to incontinence) -acute hypoxemic respiratory failure due to above -COPD with possible mild exacerbation -marked deconditioning and gait instability with generalized weakness, high fall risk, unsafe to go home directly -low-grade temperature 05/30 has not recurred -chronic rate controlled atrial fibrillation on anticoagulant -mild chronic kidney disease -normocytic anemia, mild, uncertain etiology or duration with no previous laboratory data available for comparison I reviewed the patient's care in detail today with Radha Baker of cardiology S she continues to benefit from diuresis will continue that here. Suspect she will be clinically stable for discharge to [facility] facility in 1-2 days I also visited the patient today on multidisciplinary rounds PLANS: Continue diuresis Continue fall risk precautions Continue physical occupational therapy Recheck her electrolytes and renal function in the morning Follow fevers closely if they recur consider evaluating for any potential infectious or other cause Agree that use of pull-up diapers at home would be very useful to help her be able to continue diuresis. 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, my review: Rate controlled AFib Exam: alert oriented skin warm dry color ok resps not labored lungs clear BSs few rales heart irregular abd soft nondistended nontender, bowel sounds present limbs warm, mild bipedal edema iv site ok Laboratory data: Stable CBC and chemistry today Objective: Vital Signs Temp Pulse Resp BP Pulse Ox 37.2 C 75 20 125/59 H 95 05/31/17 19:22 05/31/17 19:22 05/31/17 19:22 05/31/17 19:22 05/31/17 19:22 Laboratory Results 05/31/17 04:06 05/31/17 04:06 05/30/17 05/31/17 06/01/17 06:59 06:59 06:59 Intake Total 1400 1250 730 Output Total 2150 2251 200 Balance -750 -1001 530 PT 19.2 SEC (12.0-15.0) H 05/28/17 06:09 INR 1.60 (0.83-1.16) H 05/28/17 06:09 - Time Spent With Patient Time Spent with Patient: greater than 35 minutes Time Spent with Patient: Greater than 35 minutes spent on this patients care, greater than 50% of time spent counseling, educating, and coordinating care regarding the above mentioned plan. ICD10 Worksheet Patient Problems: Problems Problem Status Onset CHF (congestive heart failure) Acute Generalized weakness Acute Yeast infection Acute
[2017-05-31] MEDS: VENLAFAXINE XR 150 MG CAP PO SCH (20:41)
[2017-05-31] MEDS: PRIMIDONE 50 MG TAB PO SCH (20:42)
[2017-05-31] MEDS: LOXAPINE SUCCINATE 25 MG CAP PO SCH (20:43)
[2017-06-01] MEDS: traMADol 50 MG TAB PO SCH ×2 (00:28→09:20)
[2017-06-01] MEDS: IPRATROPIUM/ALBUTEROL 3 ML DEYVIAL IH SCH ×2 (05:19→10:34)
[2017-06-01] MEDS: MULTIVITAMINS 1 EACH TAB PO SCH (09:20)
[2017-06-01] MEDS: LITHIUM CARBONATE 300 MG TAB PO SCH (09:20)
[2017-06-01] MEDS: FUROSEMIDE 20 MG TAB PO SCH (09:20)
[2017-06-01] MEDS: PYRIDOXINE HCL 100 MG TAB PO SCH (09:21)
[2017-06-01] MEDS: SPIRONOLACTONE 25 MG TAB PO SCH (09:21)
[2017-06-01] MEDS: OXYBUTYNIN 5 MG EXT REL TAB PO SCH (09:21)
[2017-06-01] MEDS: PANTOPRAZOLE SODIUM 40 MG TAB PO SCH (09:21)
[2017-06-01] MEDS: FLUTICASONE/SALMETER 250/50MCG DISKUS IH SCH (10:34)
[2017-06-01 11:27] VITALS: BP 121/67
--- NOTE | 2017-06-01 12:19 | SOAPPROG ---
OTTO Progress Note Assessment/Plan: Assessment: 1. Heart failure with reduced ejection fraction 2. Acute on chronic systolic heart failure 3. Significant peripheral edema Plan: 05/28/17 10:11 05/29/17 09:06 1. Heart failure with reduced ejection fraction 2. Acute on chronic systolic heart failure 3. Peripheral edema 4. Pacemaker 5. Fatigue 06/01/2017. 06/01/17 12:17 1 heart failure with reduced ejection fraction 2. Acute on chronic systolic heart failure 3. Peripheral edema 4. Atrial fibrillation 5. Pacemaker therapy 6. Fatigue 7. Weakness She is diuresing. She has much less edema. She has a cardiomyopathy with an ejection fraction in the low 40s. She has tolerated an Julius inhibitor and now we will add low dose of Coreg. Like to start that before she goes home. Her cardiovascular medicines right now include lisinopril amlodipine spironolactone and Lasix and rivaroxaban. I will add Coreg. I had a long discussion with her. She is feeling okay right now I do not think she is safe to go to independent living and this is being worked on by the staff. I do not feel like there is any need to further progress with the workup for coronary disease she had a very negative nuclear stress test in the recent past All her questions have been answered. She remains in atrial fibrillation. She is not having any complications from her anticoagulation as of right now. Subjective: She is feeling stronger today. She is having no chest pain or chest tightness Her shortness of breath is improved She does not feel like she can walk. She feels much stronger than when she 1st came into the hospital but she still feels quite weak. She is not having headaches or stiff neck She is not having fevers or chills right now that she is aware of She is not producing sputum Objective: Vital Signs Temp Pulse Resp BP Pulse Ox 37.2 C 74 18 121/67 H 95 06/01/17 11:26 06/01/17 11:26 06/01/17 11:26 06/01/17 11:26 06/01/17 11:26 Laboratory Results 05/31/17 04:06 06/01/17 03:43 05/31/17 06/01/17 06/02/17 05:59 05:59 05:59 Intake Total 1250 930 Output Total 2251 1200 300 Balance -1001 -270 -300 PT 19.2 SEC (12.0-15.0) H 05/28/17 06:09 INR 1.60 (0.83-1.16) H 05/28/17 06:09 Physical Exam - Physical Exam General Appearance: no apparent distress Respiratory: rhonchi, prolonged expiration Cardiac/Chest: systolic murmur, irregularly irregular Abdomen: non-tender, soft, other (Very obese.) Skin: warm/dry Extremities: No non-tender Neuro/Psych: normal mood/affect ICD10 Worksheet Patient Problems: Problems Problem Status Onset CHF (congestive heart failure) Acute Generalized weakness Acute Yeast infection Acute
--- NOTE | 2017-06-01 13:57 | PDDCSUM ---
Discharge Summary Discharge Summary: DISCHARGE DIAGNOSES: -acute systolic congestive heart failure with known chronic heart disease ( patient had not been using Lasix at home due to incontinence) -acute hypoxemic respiratory failure due to above -COPD with possible mild exacerbation -marked deconditioning and gait instability with generalized weakness, high fall risk, unsafe to go home directly -low-grade temperature 05/30 has not recurred -chronic rate controlled atrial fibrillation on anticoagulant -mild chronic kidney disease -normocytic anemia, mild, uncertain etiology or duration with no previous laboratory data available for comparison CONSULTANTS: Dr. Bob Florence and colleagues PROCEDURES: Echocardiogram HOSPITAL COURSE SUMMARY: This patient with known systolic congestive heart failure and COPD presented with worsening dyspnea, leg swelling, weakness and decreased appetite. There is no pain or angina type symptom, fever or cough. Imaging study showed pulmonary edema with no evidence of infectious process. She had no fever. There is nothing to suggest ischemic changes. She had stopped taking her diuretic at home because of urinary incontinence. It is felt that this likely had a lot to do with her progression of symptoms. Additionally she came with poorly controlled blood pressures which was felt to have impacted her scenario as well. Echocardiogram did not show significant changes The patient was treated with IV Lasix here to which she did respond well. She had ongoing high blood pressures and medications were added including Coreg lisinopril and Aldactone. However during the course of her stay she did have a rising creatinine and she does have known chronic kidney disease. Therefore at this time the lisinopril and Aldactone or discontinued. She will be discharged on oral Lasix at her usual prescribed dose, with low-dose Coreg and Norvasc added for blood pressure control as well as cardio protection with Coreg. It would be advantageous at some point to consider adding either some low-dose lisinopril or some hydralazine if she has ongoing high blood pressure and because of her known systolic disease. This will need to be determined based on her blood pressure responses and her renal function stability. She can follow up with [facility] for determination of this. At this time she is stable for discharge from hospital but has significant deconditioning and gait instability and will need ongoing physical occupational therapy. Therefore she is transferred [place] a [place] [facility] [place] at this time. PENDING TEST RESULTS: None MEDICATION CHANGES: Lasix, which she had stopped taking at home, is resumed at this point Low-dose Coreg is added Norvasc is added for blood pressure control There was a plan to add lisinopril and Aldactone, though the patient has had slowly rising creatinine over the last 2 days here and these medicines are stopped for the time being but may be required in the future per [facility] FOLLOW-UP PLAN: She is transferred at this time [place] [facility] for ongoing physical therapy occupational therapy rehabilitation before returning home She will follow up at [facility] upon returning to her home Greater than 35 minutes bedside and care coordination time today
--- NOTE | 2017-06-01 13:57 | PDIAF ---
- Diagnosis Diagnosis: CHF, AFIB, RENAL INSUFF, GAIT INSTABILITY Code Status: Full Code - Medication Management Discharge Medications: Medications to Continue on Transfer Calcium Carbonate [Tums 500MG (*)] 500 mg PO TIDMEAL 05/28/17 [Last Taken ] Chlorhexidine Gluconate 15 ml PO BID 05/28/17 [Last Taken 05/27/17] Cholecalciferol Vit D3 [Vitamin D3 (*)] 50,000 unit PO Q30D 05/28/17 [Last Taken 05/05/17] Debrox Ear drops (*) 1 drop EACHEAR DAILY PRN 05/28/17 [Last Taken Unknown] Fluticasone/Salmeter 250/50Mcg [Advair 250/50 (*)] 1 puffs IH BID 05/28/17 [ Last Taken 05/27/17] Furosemide [Lasix 20 MG (*)] 20 mg PO DAILY 05/28/17 [Last Taken 05/27/17] Gabapentin [Neurontin 100 MG (*)] 100 mg PO HS PRN 05/28/17 [Last Taken Unknown] Ipratropium 0.03% Nasal [Atrovent 0.03% Nasal (*)] 2 spray EACHNARE BID [Last Taken 05/27/17] Ipratropium/Albuterol [Duoneb (*)] 3 ml IH Q4H PRN 05/28/17 [Last Taken Unknown] [place] Carbonate [[place] Carbonate Tab 300 mg (*)] 300 mg PO BID 05/28/17 [ Last Taken 05/27/17] Loperamide HCl [Imodium 2 mg (*)] 2 mg PO QID PRN 05/28/17 [Last Taken Unknown] Loxapine Succinate [Loxapine 25 mg (*)] 25 mg PO HS 05/28/17 [Last Taken ] Magnesium Hydroxide [Milk of Magnesia] 30 ml PO DAILY PRN 05/28/17 [Last Taken Unknown] Nystatin [Mycostatin 15Gm] 1 jose TP BID PRN 05/28/17 [Last Taken Unknown] Omeprazole 20 mg PO DAILY 05/28/17 [Last Taken 05/27/17] Oxybutynin Chloride [OXYBUTYNIN CHLORIDE ER] 5 mg PO DAILY 05/28/17 [Last Taken 05/27/17] Potassium Chloride [Klor-Con] 20 meq PO DAILY 05/28/17 [Last Taken 05/27/17] Primidone [Mysoline] 75 mg PO HS 05/28/17 [Last Taken 05/27/17] Pyridoxine HCl [Vitamin B-6 100 mg (*)] 100 mg PO DAILY 05/28/17 [Last Taken ] Rivaroxaban [Xarelto] 20 mg PO DAILY@18 05/28/17 [Last Taken 05/27/17] Triamcinolone 0.1% [Triamcinolone 0.1% Cream (*)] 15 gm TP DAILY PRN 05/28/17 [ Last Taken Unknown] Venlafaxine Xr [Effexor Xr] 150 mg PO HS 05/28/17 [Last Taken 05/27/17] amLODIPine BESYLATE [Amlodipine Besylate] 5 mg PO DAILY 05/28/17 [Last Taken ] metroNIDAZOLE 0.75% [Metrocream 0.75%] 0 jose TOP BID PRN 05/28/17 [Last Taken Unknown] traMADol HCL [Tramadol HCl] 100 mg PO TID 05/28/17 [Last Taken 05/27/17] Acetaminophen [Tylenol 325mg (*)] 650 mg PO Q4HRS PRN tab 06/01/17 [Last Taken Unknown] Carvedilol [Coreg (*)] 3.125 mg PO BIDMEAL tab 06/01/17 [Last Taken Unknown] Ipratropium/Albuterol [Duoneb (*)] 3 ml IH QID deyvial 06/01/17 [Last Taken Unknown] Discharge Medications: Refer to the Discharge Home Medication list for PRN reason. - Orders Services needed: Registered Nurse, Certified Parts Facilitator, Master Seafood And Service Meat Manager , Physical Therapy, Occupational Therapy Diet Recommendation: sodium restricted Diet Texture: Regular Texture Diet - Labs/Radiology BMP Date: 06/06/17 Call or Fax Lab and Imaging Results to: SEND LAB RESULTS TO DR TELLY CHAUDHRY AT [facility] - Follow Up Care Current Providers and Referrals: NONE *PRIMARY CARE P,. [Unknown] - As per Instructions
--- NOTE | 2017-06-01 16:28 | ASDISCHSUM ---
Discharge Information Plan Status:SNF Medically Cleared to Leave:06/01/2017 Discharge Date:06/01/2017 02:45 PM D/C Disposition: ADT D/C Disposition:Home, Routine, Self-Care Projected Discharge Date:06/01/2017 11:00 AM Transportation at D/C: Discharge Delay Reason: Follow-Up Date:06/01/2017 11:00 AM Discharge Slot: Final Diagnosis: Placement Information Referral Type:*Home Health Care Services Referral ID:[id number] Provider Name: Address 1: Phone Number: Address 2: Fax Number: City: Selection Factors: State: Referral Type:*Longterm/SNF Referral ID:[id number] Provider Name:[facility] Address 1:[address] [place] [address] Address 2: City:[place] Selection Factors: State:[place] Referral Type:Assisted Living Residence Referral ID:[id number] Provider Name: Address 1: Phone Number: Address 2: Fax Number: City: Selection Factors: State: Patient Contact Information Contact Name:REYNALDO Relationship:Daughter Address: City: Alternate Phone: State/Zip Code:[place] Email: Financial Information Financial Class:Medicare Advantage Plans Primary Plan Desc:[employer] Primary Plan Number:[id number] Secondary Plan Desc:[place] Secondary Plan Number:[id number] Assessment Information [facility] CM Progress Note CM Note CM Note Notes: 05/29/2017 Case Management Note Discussed pt during multidisciplinary rounds this morning. PT stated that pt is at baseline mobility valencia and is recommending Home Care. Met w/pt and daughter Bailey [phone] this afternoon. Pt lives at [facility]. Pt has previously used [facility] and [facility]. Faxed referrals to both. Discussed how to enhance supports at [facility]. Pt has Medicaid HCBS, the high risk case manager is [facility] per daughter. Encouraged pt and daughter to request assessment by [facility] for increase community supports. Offered private pay unskilled provider list that Bailey declined as she wanted to pursue reassessment for increased HCBS services. 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 Date Signed: 05/29/2017 04:08 PM Electronically Signed By:Jaquelin Guzmán RN [facility] CM Progress Note CM Note CM Note Notes: 05/30/2017 Case Management Note Discussed pt during multi disciplinary rounds this morning. Phone call from Derek ([phone]) at [facility]. After discussing pt condition with daughter Bailey, [facility] is unable to take pt back to Assisted Living with her current levels of care and is requiring a SNF rehab stay. Case Management discussed with pt and Bailey [phone], both are in agreement. Faxed referral to [facility] via [employer] at family request. Case Management d/c poc: [facility] pending acceptance. Case Management to follow. Date Signed: 05/30/2017 03:15 PM Electronically Signed By:Jaquelin Guzmán RN [facility] CM Progress Note CM Note CM Note Notes: 05/31/2017 Case Management Note Call from [facility] facility, only able to offer pt semi private room. Discussed with daughter Bailey who requested referrals to [facility] and [facility]. Family will choose based on private room. Any chosen facility will need auth from [employer] which may delay d/c tomorrow. Case Management d/c poc: to SNF pending auth and private room. Case Management to follow. Date Signed: 05/31/2017 04:30 PM Electronically Signed By:Jaquelin Guzmán RN Case Management Discharge Plan Note Case Management Discharge Discharge Order Complete? Answers: Yes Patient to Obtain Answers: Other Notes: [facility] Medications Transportation Arranged Answers: Other Notes: [facility] Transport will Pick (Date 06/01/2017 02:30 PM & Time) EMTALA Complete Answers: No Case Management Transport Answers: Yes Form Complete Faxed Final Orders Answers: Yes Agency/Facility Transfer Answers: Yes Report Printed & Faxed to Receiving Agency Family Notified Answers: Yes Discharge Comments Notes: Pts case discussed in morning rounds. Pt is being discharged today to [facility]. CM spoke w/ pts daughter Bailey on the phone regarding the d/c. DC orders sent to [facility]. CM provided ARUN Klein w/ phone number to give report. CM available for changes. Plan: [facility] Date Signed: 06/01/2017 02:03 PM Electronically Signed By:MALINA Borja Intervention Information Intervention Type:*IM-Signed Date of Service:06/01/2017 02:12 PM Patient Type:Inpatient Staff Member:Denice Lion Hours: Discipline: Severity: Comment:
[2017-06-01] MEDS ORDERED: CARVEDILOL 3.125 MG TAB PO SCH (18:00)
[2017-06-04] MEDS ORDERED: CHOLECALCIFEROL VIT D3 50,000 UNIT CAP PO SCH (09:00)
== END 2017-06-01 14:45 | DRG 291 ==
LOC: EDUNIT# → OBSVTOIN 06:58 → F2W 08:06
PROVIDERS: ADMIT Family Medicine; ATTEND Family Medicine
DX: I13.0 Hypertensive heart and chronic kidney disease with heart failure and stage 1 through stage 4 chronic kidney disease, or unspecified chronic kidney disease (principal); I50.23 Acute on chronic systolic (congestive) heart failure; N18.3 Chronic kidney disease, stage 3 (moderate); J44.1 Chronic obstructive pulmonary disease with (acute) exacerbation; J96.01 Acute respiratory failure with hypoxia; I48.0 Paroxysmal atrial fibrillation; D64.9 Anemia, unspecified; Z91.128 Patient's intentional underdosing of medication regimen for other reason; T50.1X6A Underdosing of loop [high-ceiling] diuretics, initial encounter; K21.9 Gastro-esophageal reflux disease without esophagitis; Z85.3 Personal history of malignant neoplasm of breast; Z87.440 Personal history of urinary (tract) infections; Z95.0 Presence of cardiac pacemaker; Z87.891 Personal history of nicotine dependence; Z79.01 Long term (current) use of anticoagulants; Z99.81 Dependence on supplemental oxygen
CPT/HCPCS: 97110-GP; 97116-GP; 97161-GP; 97165-GO; 97530-GP; 97535-GO; G8978-GP-CJ; G8979-GP-CI; G8987-GO-CJ; G8988-GO-CI; J1940

== ENCOUNTER 2017-11-08 21:51 | Emergency (ER) | payer OTHER, MEDICAID ==
[2017-11-08 22:07] VITALS: BP 143/86
--- NOTE | 2017-11-08 22:12 | EDPHY ---
H & P Stated Complaint: pt leaned forward off her chair using walker- breaks werent on fell forwar Time Seen by Provider: 11/08/17 22:12 HPI/ROS: HPI CHIEF COMPLAINT: Fell out of wheelchair head strike. On Xarelto. HISTORY OF PRESENT ILLNESS: 72-year-old female presents emergency room after she fell out of her wheelchair at [facility]. She fell forward with head strike. No LO C. She is on Xarelto for DVT. She denies any significant chest pain or shortness of breath, has mild headache. Denies neck pain. Small skin tear to the right hand otherwise no other signs of trauma. Past Medical History: Significant medical history for DVT on Xarelto, hypertension Past Surgical History: No recent surgery Social History: Lives at [facility]. Predominately use a wheelchair. Family History: Noncontributory ROS REVIEW OF SYSTEMS: 10 Systems were reviewed and negative with the exception of the elements mentioned in the history of present illness. Exam Constitutional elderly, nontoxic triage nursing summary reviewed, vital signs reviewed, awake/alert. Eyes normal conjunctivae and sclera, EOMI, PERRLA. HENT head/neck significant kyphosis, no midline cervical spine pain, no neck pain on exam, hit the top of her head however no significant hematoma, moist mucus membranes, no epistaxis, neck supple/ no meningismus, no raccoon eyes. Respiratory clear to auscultation bilaterally, normal breath sounds, no respiratory distress, no wheezing. Cardiovascular rate normal, regular rhythm, no murmur, no edema, distal pulses normal. Gastrointestinal soft, non-tender, no rebound, no guarding, normal bowel sounds, no distension, no pulsatile mass. Genitourinary no CVA tenderness. Musculoskeletal no midline vertebral tenderness, full range of motion, no calf swelling, no tenderness of extremities, no meningismus, good pulses, neurovascularly intact. Skin small skin tear to the dorsum of the right hand, pink, warm, & dry, no rash Neurologic awake, alert and oriented x 3, AAOx3, moves all 4 extremities equally, motor intact, sensory intact, CN II-XII intact, normal cerebellar, normal vision, normal speech. Psychiatric normal mood/affect. Heme/Lymph/Immune no lymphadenopathy. Differential Diagnosis: Includes but is not limited to in a particular order head injury, contusion, closed head injury, concussion, intracranial bleed Medical Decision Making: Plan for this patient given that she is on Xarelto with head strike with mild headache will proceed with CT scan head without contrast rule out intracranial bleed. If this is normal I feel that she can be discharged home. Re-evaluation: CT scan head without contrast negative for acute bleed. Patient re-evaluated resting comfortably no acute distress. Return precautions discussed. Source: Patient - Personal History Current Tetanus Diphtheria and Acellular Pertussis (TDAP): Yes - Medical/Surgical History Hx Asthma: No Hx Chronic Respiratory Disease: Yes Hx Diabetes: No Hx Cardiac Disease: Yes Hx Renal Disease: No Hx Cirrhosis: No Hx Alcoholism: No Hx HIV/AIDS: No Hx Splenectomy or Spleen Trauma: No Other PMH: PMH: GERD,HTN,BIPOLAR,ANXIETY,COPD,BREAST CA, DVT, CHF. PSH: R MASTECTOMY - Social History Smoking Status: Former smoker Constitutional: Initial Vital Signs Temperature (C) 36.6 C 11/08/17 22:04 Heart Rate 77 11/08/17 22:04 Respiratory Rate 16 11/08/17 22:04 Blood Pressure 143/86 H 11/08/17 22:04 O2 Sat (%) 92 11/08/17 22:04 O2 Delivery Mode Room Air Allergies/Adverse Reactions: bacitracin Allergy (Verified 05/28/17 06:50) naproxen [From Aleve] Allergy (Verified 05/28/17 06:50) Penicillins Allergy (Verified 03/12/14 14:39) Home Medications: Medication Instructions Recorded Calcium Carbonate [Tums 500MG (*)] 500 mg PO TIDMEAL 05/28/17 Chlorhexidine Gluconate 15 ml PO BID 05/28/17 Cholecalciferol Vit D3 [Vitamin D3 50,000 unit PO Q30D 05/28/17 (*)] Debrox Ear drops (*) 1 drop EACHEAR DAILY PRN 05/28/17 Fluticasone/Salmeter 250/50Mcg 1 puffs IH BID 05/28/17 [Advair 250/50 (*)] Furosemide [Lasix 20 MG (*)] 20 mg PO DAILY 05/28/17 Gabapentin [Neurontin 100 MG (*)] 100 mg PO HS PRN 05/28/17 Ipratropium 0.03% Nasal [Atrovent 2 spray EACHNARE BID 05/28/17 0.03% Nasal (*)] Ipratropium/Albuterol [Duoneb (*)] 3 ml IH Q4H PRN 05/28/17 [place] Carbonate [[place] 300 mg PO BID 05/28/17 Carbonate Tab 300 mg (*)] Loperamide HCl [Imodium 2 mg (*)] 2 mg PO QID PRN 05/28/17 Loxapine Succinate [Loxapine 25 mg 25 mg PO HS 05/28/17 (*)] Magnesium Hydroxide [Milk of 30 ml PO DAILY PRN 05/28/17 Magnesia] Nystatin [Mycostatin 15Gm] 1 jose TP BID PRN 05/28/17 Omeprazole 20 mg PO DAILY 05/28/17 Oxybutynin Chloride [OXYBUTYNIN 5 mg PO DAILY 05/28/17 CHLORIDE ER] Potassium Chloride [Klor-Con] 20 meq PO DAILY 05/28/17 Primidone [Mysoline] 75 mg PO HS 05/28/17 Pyridoxine HCl [Vitamin B-6 100 mg 100 mg PO DAILY 05/28/17 (*)] Rivaroxaban [Xarelto] 20 mg PO DAILY@18 05/28/17 Triamcinolone 0.1% [Triamcinolone 15 gm TP DAILY PRN 05/28/17 0.1% Cream (*)] Venlafaxine Xr [Effexor Xr] 150 mg PO HS 05/28/17 amLODIPine BESYLATE [Amlodipine 5 mg PO DAILY 05/28/17 Besylate] metroNIDAZOLE 0.75% [Metrocream 0 jose TOP BID PRN 05/28/17 0.75%] traMADol HCL [Tramadol HCl] 100 mg PO TID 05/28/17 Acetaminophen [Tylenol 325mg (*)] 650 mg PO Q4HRS PRN tab 06/01/17 Carvedilol [Coreg (*)] 3.125 mg PO BIDMEAL tab 06/01/17 Ipratropium/Albuterol [Duoneb (*)] 3 ml IH QID deyvial 06/01/17 Medical Decision Making - Diagnostics Imaging Results: Imaging Impressions Head CT 11/08/17 22:18 Impression: Elderly brain with atrophy and probable white matter small vessel disease. Negative for hemorrhage. Results called and discussed with Saul Bailey MD on 11/08/2017 at 23:13. - Data Points Medications Given: Discontinued Medications Acetaminophen (Tylenol) 1,000 mg PO EDNOW ONE Stop: 11/08/17 22:19 Last Admin: 11/08/17 22:42 Dose: 1,000 mg Nitrofurantoin Macrocrystals (Macrobid) 100 mg PO EDNOW ONE PRN Reason: Protocol Stop: 11/08/17 22:19 Last Admin: 11/08/17 22:44 Dose: Not Given Tramadol HCl (Ultram) 100 mg PO EDNOW ONE Stop: 11/08/17 22:19 Last Admin: 11/08/17 22:43 Dose: 100 mg Departure - Departure Disposition: Home, Routine, Self-Care Clinical Impression: Head injury Qualifiers: Encounter type: initial encounter Qualified Code(s): S09.90XA - Unspecified injury of head, initial encounter Condition: Good Instructions: Concussion (ED), Head Injury (ED) Additional Instructions: 1. Return emergency room if he develops any worsening symptoms questions or concerns. Referrals: Joanie GOETZ [Primary Care Provider] - As per Instructions
[2017-11-08] MEDS ORDERED: ACETAMINOPHEN 500 MG TAB PO ONE (22:18)
[2017-11-08] MEDS ORDERED: NITROFURANTOIN MACROBID 100 MG CAP PO ONE (22:18)
[2017-11-08] MEDS ORDERED: traMADol 50 MG TAB PO ONE (22:18)
== END 2017-11-08 23:39 | disposition home or self-care (01) ==
LOC: EDUNIT# → EDBD
DX: S09.90XA Unspecified injury of head, initial encounter (principal); R40.2411 Glasgow coma scale score 13-15, in the field [EMT or ambulance]; S61.401A Unspecified open wound of right hand, initial encounter; W05.0XXA Fall from non-moving wheelchair, initial encounter; Y92.129 Unspecified place in nursing home as the place of occurrence of the external cause; Y99.8 Other external cause status; Z86.718 Personal history of other venous thrombosis and embolism; Z79.01 Long term (current) use of anticoagulants

== ENCOUNTER 2018-01-02 16:11 | Emergency (ER) | payer OTHER, MEDICAID ==
--- NOTE | 2018-01-02 17:01 | EDPHY ---
HPI/HX/ROS/PE/MDM Narrative: CHIEF COMPLAINT: Weakness, shakiness HPI: The patient is an anticoagulated 72 y/o female with a history of CHF and bipolar disorder arriving with her daughter complaining of feeling weak and "down" today. She told her daughter she feels very weak and "didn't want to be left alone" because she "was afraid I wouldn't be able to function." Her daughter also noticed the patient's tremor is much worse than baseline today as is her bilateral lower leg edema. The patient additionally mentions she's had increased urination recently, but has also increased her fluid intake. She did quit her Chantix last , but otherwise denies changes to her medications. She denies fever, cough, abdominal pain, vomiting, diarrhea. REVIEW OF SYSTEMS: A comprehensive 10 system review of systems is otherwise negative aside from elements mentioned in the history of present illness. Neck pain at baseline. PMH: Hypertension, GERD, anxiety, bipolar disorder, COPD, CHF, DVT - Xarelto SOCIAL HISTORY: Daughter at bedside. Lives at [facility] living [facility]. Uses wheelchair. Prior medical records reviewed including ED visit 11/08/17 for fall. PHYSICAL EXAM: General:Patient is alert, in no acute distress. ENT:Eyes are normal to inspection. ENT inspection normal. Neck: Holding neck at skewed angle, reports this is baseline. Otherwise normal inspection. Respiratory:No respiratory distress. Breath sounds normal bilaterally. Cardiovascular: Regular rate and rhythm. Strong peripheral pulses. Normal cap refill. Abdomen:The abdomen is nontender to palpation. There are no peritoneal signs. Back: Normal to inspection. No tenderness to palpation. Skin: Normal color. No rash. Warm and dry. Extremities: Bilateral lower extremity edema, otherwise normal appearance. Full range of motion. Neuro: Oriented x3. Normal motor function. Normal sensory function. ED Course: This is a 72 y/o female with a history of CHF who presents feeling weak, shaky, and concerned about being at home alone in conjunction with these symptoms. She has mild bilateral pedal edema and clear lungs on auscultation. She is afebrile. Plan for IV, labs, UA, EKG, chest x-ray to evaluate for infectious causes or worsening of her CHF. The 12 lead EKG was interpreted by myself. See hard copy and/or "tracemaster" electronic copy for interpretation. Chest x-ray: cardiomegaly, no obvious pneumonia. BNP mildly elevated at 652. UA shows mild increase in WBC, though not conclusive for acute UTI and patient is on prophylactic antibiotics for UTIs already. Reassessed patient and discussed findings with her and her daughter. Offered admission for observation and further evaluation, which the patient declined. Daughter tells me she has not seen a psychologist in 4 years due to difficulty getting an appointment. RN will contact [facility] and work on arranging out patient appointment for follow up. She will be discharged home with standard care and follow up instructions. Return precautions discussed. - Data Points Imaging Results: Imaging Impressions Chest X-Ray 01/02/18 17:02 Impression: 1. Streaky basilar opacities suggesting atelectasis without definite evidence of pneumonia. 2. Cardiomegaly without leno failure. Imaging: I viewed and interpreted images myself Laboratory Results: Laboratory Results 01/02/18 16:50 01/02/18 16:50 01/02/18 01/02/18 01/02/18 17:00 16:59 16:50 WBC RBC Hgb Hct MCV MCH MCHC RDW Plt Count MPV Neut % (Auto) Lymph % (Auto) [place] % (Auto) Eos % (Auto) Baso % (Auto) Nucleat RBC Rel Count Absolute Neuts (auto) Absolute Lymphs (auto) Absolute Monos (auto) Absolute Eos (auto) Absolute Basos (auto) Absolute Nucleated RBC Immature Gran % Immature Gran # Sodium 138 mEq/L mEq/L (135-145) Potassium 4.6 mEq/L mEq/L (3.3-5.0) Chloride 106 mEq/L mEq/L (97-110) Carbon Dioxide 25 mEq/l mEq/l (22-31) Anion Gap 7 mEq/L mEq/L (6-14) BUN 12 mg/dL mg/dL (7-23) Creatinine 1.1 mg/dL H mg/dL (0.6-1.0) Estimated GFR 49 Glucose 84 mg/dL mg/dL (70-100) Calcium 9.0 mg/dL mg/dL (8.5-10.4) POC Troponin I 0.00 ng/mL ng/mL (0.00-0.08) NT-Pro-B Natriuret Pep 652 pg/mL H pg/mL (0-125) Urine Color PALE YELLOW Urine Appearance CLEAR Urine pH 7.0 (5.0-7.5) Ur Specific [place] 1.002 (1.002-1.030) Urine Protein NEGATIVE (NEGATIVE) Urine Ketones NEGATIVE (NEGATIVE) Urine Blood NEGATIVE (NEGATIVE) Urine Nitrate NEGATIVE (NEGATIVE) Urine Bilirubin NEGATIVE (NEGATIVE) Urine Urobilinogen NEGATIVE EU EU (0.2-1.0) Ur Leukocyte Esterase TRACE H (NEGATIVE) Urine RBC 1-3 /hpf /hpf (0-3) Urine WBC 3-5 /hpf H /hpf (0-3) Ur Epithelial Cells TRACE /lpf /lpf (NONE-1+) Urine Glucose NEGATIVE (NEGATIVE) [place] 0.9 mEq/L mEq/L (0.6-1.2) 01/02/18 16:50 WBC 8.22 10^3/uL 10^3/uL (3.80-9.50) RBC 3.82 10^6/uL L 10^6/uL (4.18-5.33) Hgb 11.1 g/dL L g/dL (12.6-16.3) Hct 36.0 % L % (38.0-47.0) MCV 94.2 fL fL (81.5-99.8) MCH 29.1 pg pg (27.9-34.1) MCHC 30.8 g/dL L g/dL (32.4-36.7) RDW 14.6 % % (11.5-15.2) Plt Count 256 10^3/uL 10^3/uL (150-400) MPV 8.7 fL fL (8.7-11.7) Neut % (Auto) 70.3 % % (39.3-74.2) Lymph % (Auto) 17.0 % % (15.0-45.0) [place] % (Auto) 7.5 % % (4.5-13.0) Eos % (Auto) 3.8 % % (0.6-7.6) Baso % (Auto) 0.7 % % (0.3-1.7) Nucleat RBC Rel Count 0.0 % % (0.0-0.2) Absolute Neuts (auto) 5.77 10^3/uL 10^3/uL (1.70-6.50) Absolute Lymphs (auto) 1.40 10^3/uL 10^3/uL (1.00-3.00) Absolute Monos (auto) 0.62 10^3/uL 10^3/uL (0.30-0.80) Absolute Eos (auto) 0.31 10^3/uL 10^3/uL (0.03-0.40) Absolute Basos (auto) 0.06 10^3/uL 10^3/uL (0.02-0.10) Absolute Nucleated RBC 0.00 10^3/uL 10^3/uL (0-0.01) Immature Gran % 0.7 % % (0.0-1.1) Immature Gran # 0.06 10^3/uL 10^3/uL (0.00-0.10) Sodium Potassium Chloride Carbon Dioxide Anion Gap BUN Creatinine Estimated GFR Glucose Calcium POC Troponin I NT-Pro-B Natriuret Pep Urine Color Urine Appearance Urine pH Ur Specific [place] Urine Protein Urine Ketones Urine Blood Urine Nitrate Urine Bilirubin Urine Urobilinogen Ur Leukocyte Esterase Urine RBC Urine WBC Ur Epithelial Cells Urine Glucose [place] Point of Care Test Results: Chemistry 01/02/18 16:59 POC Troponin I 0.00 ng/mL ng/mL (0.00-0.08) General Time Seen by Provider: 01/02/18 16:26 Initial Vital Signs: Initial Vital Signs Temperature (C) 36.8 C 01/02/18 16:17 Heart Rate 76 01/02/18 16:17 Respiratory Rate 19 01/02/18 16:17 Blood Pressure 98/89 H 01/02/18 16:17 O2 Sat (%) 94 01/02/18 16:17 O2 Delivery Mode Nasal Cannula Allergies/Adverse Reactions: bacitracin Allergy (Verified 01/02/18 16:15) naproxen [From Aleve] Allergy (Verified 01/02/18 16:15) Penicillins Allergy (Verified 01/02/18 16:15) Home Medications: Medication Instructions Recorded Calcium Carbonate [Tums 500MG (*)] 500 mg PO TIDMEAL 05/28/17 Chlorhexidine Gluconate 15 ml PO BID 05/28/17 Cholecalciferol Vit D3 [Vitamin D3 50,000 unit PO Q30D 05/28/17 (*)] Debrox Ear drops (*) 1 drop EACHEAR DAILY PRN 05/28/17 Fluticasone/Salmeter 250/50Mcg 1 puffs IH BID 05/28/17 [Advair 250/50 (*)] Furosemide [Lasix 20 MG (*)] 20 mg PO DAILY 05/28/17 Gabapentin [Neurontin 100 MG (*)] 100 mg PO HS PRN 05/28/17 Ipratropium 0.03% Nasal [Atrovent 2 spray EACHNARE BID 05/28/17 0.03% Nasal (*)] Ipratropium/Albuterol [Duoneb (*)] 3 ml IH Q4H PRN 05/28/17 [place] Carbonate [[place] 300 mg PO BID 05/28/17 Carbonate Tab 300 mg (*)] Loperamide HCl [Imodium 2 mg (*)] 2 mg PO QID PRN 05/28/17 Loxapine Succinate [Loxapine 25 mg 25 mg PO HS 05/28/17 (*)] Magnesium Hydroxide [Milk of 30 ml PO DAILY PRN 05/28/17 Magnesia] Nystatin [Mycostatin 15Gm] 1 jose TP BID PRN 05/28/17 Omeprazole 20 mg PO DAILY 05/28/17 Oxybutynin Chloride [OXYBUTYNIN 5 mg PO DAILY 05/28/17 CHLORIDE ER] Potassium Chloride [Klor-Con] 20 meq PO DAILY 05/28/17 Primidone [Mysoline] 75 mg PO HS 05/28/17 Pyridoxine HCl [Vitamin B-6 100 mg 100 mg PO DAILY 05/28/17 (*)] Rivaroxaban [Xarelto] 20 mg PO DAILY@18 05/28/17 Triamcinolone 0.1% [Triamcinolone 15 gm TP DAILY PRN 05/28/17 0.1% Cream (*)] Venlafaxine Xr [Effexor Xr] 150 mg PO HS 05/28/17 amLODIPine BESYLATE [Amlodipine 5 mg PO DAILY 05/28/17 Besylate] metroNIDAZOLE 0.75% [Metrocream 0 jose TOP BID PRN 05/28/17 0.75%] traMADol HCL [Tramadol HCl] 100 mg PO TID 05/28/17 Acetaminophen [Tylenol 325mg (*)] 650 mg PO Q4HRS PRN tab 06/01/17 Carvedilol [Coreg (*)] 3.125 mg PO BIDMEAL tab 06/01/17 Ipratropium/Albuterol [Duoneb (*)] 3 ml IH QID deyvial 06/01/17 Departure - Departure Disposition: Home, Routine, Self-Care Clinical Impression: Generalized weakness, Anxiety Condition: Good Instructions: Weakness (ED), Anxiety (ED) Additional Instructions: 1. Continue taking all medications as directed. 2. Follow up with [facility] as discussed. 3. Return to the ED for any worsening of condition. Referrals: Joanie GOETZ [Primary Care Provider] - As per Instructions [facility],. [Clinic] - As per Instructions Report Scribed for: Ralph Fermin Report Scribed by: Shabana Kiser Date of Report: 01/02/18 Time of Report: 17:02 Physician Review and Approval Statement: Portions of this note were transcribed by an ED scribe. I personally performed the history, physical exam, and medical decision making; and confirm the accuracy of the information in the transcribed note.
[2018-01-02 17:14] LABS: PLATELET COUNT 256 10^3/uL (150-400)
[2018-01-02] MEDS ORDERED: LORAZEPAM 1 MG PREPACK#4 BTL TAKEHOME ONE (18:40)
[2018-01-02 19:39] VITALS: BP 141/75
--- NOTE | 2018-01-03 | ASMTLCPROG ---
Notes Note: Notes: TLC Consult request Pt reportd she is looking to get a psychiatrist. Pt's daughter reported they have been on a waiting list for 1 year. Pt reports she has had increased depression in the past few days and feels hopeless. Pt denied SI and stated she does not feel like she needs inpt hospitalization. I printed out a list of psychiatrist in [facility] for pt. Date Signed: 01/02/2018 11:59 PM Electronically Signed By:Coco Vela
--- NOTE | 2018-01-09 21:27 | CPEKG ---
Test Reason : OPEN Blood Pressure : / mmHG Vent. Rate : 075 BPM Atrial Rate : 076 BPM P-R Int : 143 ms QRS Dur : 096 ms QT Int : 415 ms P-R-T Axes : 018 -40 063 degrees QTc Int : 464 ms Atrial-paced rhythm Left axis deviation Probable anteroseptal infarct, old Confirmed by Ralph Fermin ([id number] on 01/09/2018 9:26:34 PM Referred By: Confirmed By:Ralph Fermin
== END 2018-01-02 19:42 | disposition home or self-care (01) ==
DX: R53.1 Weakness (principal); F31.9 Bipolar disorder, unspecified; I50.9 Heart failure, unspecified; I11.0 Hypertensive heart disease with heart failure; Z79.01 Long term (current) use of anticoagulants; Z86.718 Personal history of other venous thrombosis and embolism
CPT/HCPCS: 84484-PO

== ENCOUNTER 2018-08-12 16:45 | Emergency (ER) | payer OTHER, MEDICAID | END 2018-08-12 18:49 | disposition home or self-care (01) ==